=== PATIENT | male | born 1950 | race Caucasian/White ===

== ENCOUNTER 2020-09-27 07:33 | Day surgery (SDC) | payer MEDICARE, BC ==
[~2020-09-27 07:33] MED LIST: Midazolam 1 MG/ML 2 ML SDV ONE; Propofol 200 MG/20 ML SDV ONE; fentaNYL 100 MCG/2 ML SDV ONE
[2020-09-27] MEDS ORDERED: Dextrose 5%-Lactated Ringers 1,000 ML IV SCH (07:45)
--- NOTE | 2020-10-12 20:29 | OR ---
DATE OF PROCEDURE: 09/27/2020 SURGEON: Jules Guzman MD PREOPERATIVE DIAGNOSIS: History of rectal bleeding. POSTOPERATIVE DIAGNOSIS: 1. History of rectal bleeding secondary to diffusely excoriated hemorrhoids. 2. Single 1 cm polyp, mid sigmoid colon. OPERATIVE PROCEDURE: Flexible colonoscopy with polypectomy by snare technique. ANESTHESIA: IV sedation. INDICATION FOR PROCEDURE: A 70-year-old male presenting with some rectal bleeding who is undergoing colonoscopy with biopsies and polypectomy if indicated. Potential risks including bleeding and perforation were discussed, and the patient wishes to proceed. DETAILS OF PROCEDURE: The patient was taken to the operating room and placed in a left lateral decubitus position. IV sedation was administered, after which the initial digital rectal exam was performed. It was unremarkable. Colonoscope was then passed into the rectum with retroflexion revealing more or less diffusely excoriated hemorrhoidal columns. These would not be amenable to hemorrhoid banding per se due to the mixed level of the extent of excoriation. No blood or bleeding was seen on today's exam. Scope was eventually passed to the level of the cecum. The prep was fairly good with only small liquid stool present. There were no diverticula. No areas of colitis. There was a single polyp located at 25 cm from the dentate line, i.e., in the mid sigmoid colon. This was removed by means of polyp snare technique and sent for histologic evaluation. Good hemostasis was confirmed, scope was withdrawn, and the procedure was then concluded. At this point, the patient will be instructed to avoid constipation which seems to be problem at this point and then use Preparation H and/or hydrocortisone cream p.r.n. for hemorrhoid bleeding. Follow up with Vaughn Cespedes in 2 weeks regarding his abdominal pain per se, and his next colonoscopy should be in 3 years based on the polypectomy done today. Jules Guzman MD /[id number]
== END 2020-09-27 10:42 | disposition home or self-care (01) ==
LOC: JP.SDS 07:33
PROVIDERS: ATTEND Surgery
DX: D12.5 Benign neoplasm of sigmoid colon (principal); K64.9 Unspecified hemorrhoids
CPT/HCPCS: 45385; 88305; J2250; J2704; J3010; J7121

== ENCOUNTER 2021-04-11 07:58 | Day surgery (SDC) | payer MEDICARE, BC ==
[~2021-04-11 07:58] MED LIST changes: +Bupivacaine 0.5% 50 ML MDV ONE; +Dextrose 5%-Lactated Ringers 1,000 ML IV SCH; +Lidocaine 1% with EPINEPHrine 1:100,000 50 ML MDV ONE; +ceFAZolin 2 GM in Premix Bag 1 BAG IV ONE
[2021-04-11] MEDS ORDERED: ceFAZolin 2 GM in Premix Bag 1 BAG IV ONE (08:45)
[2021-04-11] MEDS ORDERED: Dextrose 5%-Lactated Ringers 1,000 ML IV SCH (08:45)
[2021-04-11] MEDS ORDERED: Pantoprazole 40 MG Vial IVPUSH ONE (11:41)
--- NOTE | 2021-04-19 13:37 | OR ---
DATE OF PROCEDURE: 04/11/2021 SURGEON: Jules Guzman MD PREOPERATIVE DIAGNOSIS: Epigastric pain and heartburn. POSTOPERATIVE DIAGNOSES: 1. Moderate-sized hiatal hernia with ulcerated esophagitis and grade 1 to 2 esophageal varices. 2. Mild antral gastritis and duodenitis. PROCEDURE PERFORMED: Esophagogastroduodenoscopy with antral biopsies for CLOtest. ANESTHESIA: IV sedation. INDICATION FOR PROCEDURE: This is a 70-year-old male presenting with some ongoing heartburn and epigastric discomfort. He has, in the past, been intermittently on some acid blocking- type medications, but not presently on any. Plan is to proceed with upper endoscopy with biopsies as indicated. Potential risks including bleeding and perforation were discussed, and the patient wishes to proceed. DETAILS OF PROCEDURE: The patient was taken to the operating room and placed in a left lateral decubitus position. IV sedation was administered after which the upper GI endoscope was passed orally through the length of the esophagus into the stomach with retroflexion view of the fundus, and thereafter, through the pyloric channel into the proximal duodenum. Findings included normal hypopharynx, larynx, upper esophageal sphincter, and esophageal body. In the mid esophagus and downward, the patient did have some visible esophageal varices. These were relatively low grade. This was associated with a roughly 4 to 5 cm hiatal hernia. There was significant ulceration in the distal esophagus as well as extending several centimeters above that. One of the ulcers was directly over one of the varices, but appeared to be fairly superficial. Apart from that, there was no plaquing or growth suggestive of neoplastic change, and no stricturing noted. Within the stomach, there was some patchy redness in the antrum and duodenal bulb. Beyond that, duodenal findings were unremarkable. Proximally, there were some mild gastric varices as well. At this point, biopsies were obtained from the antrum and sent for CLOtest for H pylori. Minimal bleeding from the biopsy site was seen. We deferred biopsying the areas for ulceration so as to avoid potential bleeding from varices, and the procedure was then concluded. The patient will be started on Protonix 40 mg IV push in the recovery room and then begin on Protonix 40 mg daily. The patient should likely remain on some acid-blockade medication indefinitely so as to avoid risk of developing bleeding from the varices. The other issue in this patient is the patient has nasal presentation and would like some of this to be excised. We will set him up for consultation with Dr. Yao Joseph of the ENT Department in [place]. Otherwise, the patient will be following up with Vaughn Cespedes CNP, at [facility] in 2 weeks. Jules Guzman MD /[id number]
== END 2021-04-11 12:39 | disposition home or self-care (01) ==
LOC: JP.SDS 07:58
PROVIDERS: ATTEND Surgery
DX: K22.10 Ulcer of esophagus without bleeding (principal); K29.90 Gastroduodenitis, unspecified, without bleeding; I85.00 Esophageal varices without bleeding; K44.9 Diaphragmatic hernia without obstruction or gangrene; K21.9 Gastro-esophageal reflux disease without esophagitis
CPT/HCPCS: 43239; 87081; C9113; J2250; J2704; J3010; J7121; J3490

== ENCOUNTER 2021-06-06 19:19 | Emergency (ER) | payer MEDICARE, BC ==
[2021-06-06] MEDS ORDERED: Ketorolac 30 MG/ML SDV IM ONE (20:43)
[2021-06-06] MEDS ORDERED: Tamsulosin 0.4 MG Cap.ER PO ONE (21:21)
--- NOTE | 2021-06-06 21:23 | EDM.PDOC ---
ED HPI GENERAL MEDICAL PROBLEM - General Chief Complaint: Back Pain or Injury Stated Complaint: BACK PAIN Time Seen by Provider: 06/06/21 20:25 Source of Information: Reports: Patient History Limitations: Reports: No Limitations - History of Present Illness INITIAL COMMENTS - FREE TEXT/NARRATIVE: 71-year-old male developed right abdominal and right flank pain 6 hours ago, took some ibuprofen and that seemed to improve. It came back later however he had a hard time getting comfortable and the pain got so severe that he was rolling around on the floor. Nauseous but no vomiting, he also has some urgency for urination. No fevers or chills, no recent trauma. Onset: Sudden (Fairly sudden onset 6 hours ago) Duration: Other (Right flank and right upper abdomen) Improves with: Reports: Other (Seems to be better when sitting up, ibuprofen was also helpful) Worsens with: Reports: None Associated Symptoms: Reports: Other (Nausea but no vomiting) right lower back Pain Score (Numeric/FACES): 3 - Related Data Allergies Allergy/AdvReac Type Severity Reaction Status Date / Time No Known Allergies Allergy Verified 06/06/21 20:30 Home Meds: Home Meds Pantoprazole Sodium [Protonix] 40 mg PO DAILY 06/06/21 [History] Past Medical History HEENT History: Reports: Cataract, Impaired Vision, Other (See Below) 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 Gastrointestinal History: Reports: Colon Polyp, GERD, GI Bleed, Hemorrhoids Other Gastrointestinal History: ulcers Genitourinary History: Reports: None Musculoskeletal History: Reports: Arthritis, Back Pain, Chronic, Neck Pain, Chronic Neurological History: Reports: Concussion, Headaches, Chronic, Vertigo Endocrine/Metabolic History: Reports: Other (See Below) Other Endocrine/Metabolic History: hypoglycemic Dermatologic History: Reports: Urticaria - Infectious Disease History Infectious Disease History: Reports: Chicken Pox, Measles, Mumps, Rubella - Past Surgical History HEENT Surgical History: Reports: None GI Surgical History: Reports: Colonoscopy, Polypectomy Male Surgical History: Reports: Vasectomy Endocrine Surgical History: Reports: None Neurological Surgical History: Reports: None Musculoskeletal Surgical History: Reports: None Dermatological Surgical History: Reports: None Social & Family History - Family History Family Medical History: No Pertinent Family History - Tobacco Use Tobacco Use Status *Q: Never Tobacco User - Caffeine Use Caffeine Use: Reports: None - Recreational Drug Use Recreational Drug Use: No ED ROS GENERAL - Review of Systems Review Of Systems: See Below Constitutional: Denies: Fever, Chills HEENT: Reports: No Symptoms Respiratory: Denies: Shortness of Breath, Cough Cardiovascular: Denies: Chest Pain, Palpitations GI/Abdominal: Reports: Abdominal Pain, Nausea. Denies: Constipation, Diarrhea, Vomiting : Reports: Flank Pain, Urgency Musculoskeletal: Reports: Back Pain Skin: Reports: No Symptoms Neurological: Reports: No Symptoms Psychiatric: Reports: No Symptoms ED EXAM, GENERAL - Physical Exam Exam: See Below Exam Limited By: No Limitations General Appearance: Alert, Anxious, Moderate Distress (Very uncomfortable when I first examined the patient, difficulty sitting still) Head: Atraumatic Respiratory/Chest: Lungs Clear Cardiovascular: Regular Rate, Rhythm. No: Tachycardia GI/Abdominal: Soft, Non-Tender Back Exam: Other (No palpation tenderness). No: CVA Tenderness (R), CVA Tenderness (L) Extremities: Normal Inspection. No: Pedal Edema Neurological: Alert, Oriented Psychiatric: Anxious Course - Vital Signs Last Recorded V/S: Last Vital Signs Temp 97.1 F 06/06/21 20:31 Pulse 76 06/06/21 20:31 Resp 16 06/06/21 20:31 BP 143/79 H 06/06/21 20:31 Pulse Ox 97 06/06/21 20:31 - Orders/Labs/Meds Labs: Laboratory Tests 06/06/21 Range/Units 20:43 Urine Color Yellow (YELLOW) Urine Appearance Slightly cloudy A (CLEAR) Urine pH 5.5 (5.0-8.0) Ur Specific [place] >= 1.030 (1.008-1.030) Urine Protein 30 H (NEGATIVE) mg/dL Urine Glucose (UA) Negative (NEGATIVE) mg/dL Urine Ketones Negative (NEGATIVE) mg/dL Urine Occult Blood Moderate H (NEGATIVE) Urine Nitrite Negative (NEGATIVE) Urine Bilirubin Negative (NEGATIVE) Urine Urobilinogen 0.2 (0.2-1.0) EU/dL Ur Leukocyte Esterase Negative (NEGATIVE) Urine RBC 40-50 H (0-5) Urine WBC 0-5 (0-5) Ur Epithelial Cells Rare Amorphous Sediment Not seen Urine Bacteria Rare Urine Mucus Few Meds: Medications Discontinued Medications Generic Name Dose Route Start Last Admin Trade Name Freq PRN Reason Stop Dose Admin Ketorolac Tromethamine 30 mg 06/06/21 20:43 06/06/21 20:53 Ketorolac 30 Mg/Ml Sdv IM 06/06/21 20:44 30 mg ONETIME ONE Administration Tamsulosin HCl 0.4 mg 06/06/21 21:21 06/06/21 21:28 Tamsulosin 0.4 Mg Cap.Er PO 06/06/21 21:22 0.4 mg ONETIME ONE Administration - Re-Assessments/Exams Free Text/Narrative Re-Assessment/Exam: 06/06/21 21:26 Patient was given 30 mg of IM Toradol, a UA was obtained and he was sent back for CT of the abdomen and pelvis without contrast. He had marked relief of the pain with the IM Toradol, the CT did confirm a small ureteral stone about midway down the right ureter. He was given 1 oral dose of Flomax, and discharged with 10 additional doses of Toradol to take every 6 hours along with 10 hydrocodone for extra pain control. If pain is not resolved in the next 1 to 2 days he can return for recheck. 06/06/21 21:27 UA showed 40-50 RBCs, no evidence of infection Departure - Departure Time of Disposition: 21:40 Disposition: Home, Self-Care 01 Clinical Impression: Renal colic on right side, Right nephrolithiasis - Discharge Information Instructions: Kidney Stones, [id number] Referrals: Vaughn Cespedes [facility]ICE [facility]NER [Primary Care Provider] - Forms: ED Department Discharge Care Plan Goals: Stay hydrated, take 1 ketorolac pill every 6 hours to keep pain under control and add Vicodin as directed if needed for extra pain control. It is safe to take both. Consider rechecking in 24 to 48 hours if not significant improvement. Sepsis Event Note (ED) - Evaluation Sepsis Screening Result: No Definite Risk - Focused Exam Vital Signs: Vital Signs Temp Pulse Resp BP Pulse Ox 06/06/21 20:31 97.1 F 76 16 143/79 H 97 06/06/21 19:35 97.1 F 76 16 143/79 H 97
--- NOTE | 2021-06-06 21:28 | CRLCT ---
For Patients: As a result of the Century Cures Act, medical imaging exams and procedure reports are released immediately into your electronic medical record. You may view this report before your referring provider. If you have questions, please contact your health care provider. INDICATION: Right flank pain. COMPARISON: None available. TECHNIQUE: Routine noncontrast axial CT images of the abdomen and pelvis. Sagittal and coronal reformatted series were also generated and reviewed. FINDINGS: The lower chest is unremarkable. - Low-attenuation lesion in the left lobe of the liver, compatible with a benign cyst. No biliary ductal dilatation. The gallbladder, pancreas, spleen and adrenal glands have an unremarkable noncontrast appearance. A partially exophytic benign right renal cyst. 3 mm right proximal ureteral stone results in mild right-sided hydronephrosis. No left-sided hydronephrosis. - Normal caliber aorta. No aneurysm. No suspicious abdominal or pelvic lymphadenopathy. - No bowel obstruction or ascites. The appendix is normal. Few scattered colonic diverticula. No focal inflammatory change, perforation or abscess. - Urinary bladder is decompressed. Moderately enlarged prostate. Seminal vesicles are unremarkable. No free fluid in the pelvis. - There are no acute or aggressive osseous findings. IMPRESSION: 1. 3 mm right proximal ureteral stone resulting in mild right-sided hydronephrosis. 2. Other findings, as above. Dictated by Delfino Colorado MD @ 06/06/2021 9:28:01 PM Please note that all CT scans at this facility use dose modulation, iterative reconstruction, and/or weight-based dosing when appropriate to reduce radiation dose to as low as reasonably achievable. Dictated by: Delfino Colorado MD @ 06/06/2021 21:28:11 (Electronically Signed)
== END 2021-06-06 21:47 | disposition home or self-care (01) ==
LOC: JP.ED 19:19
DX: N13.2 Hydronephrosis with renal and ureteral calculous obstruction (principal); K21.9 Gastro-esophageal reflux disease without esophagitis; Z79.899 Other long term (current) drug therapy
CPT/HCPCS: 74176; 81001; 96372; 99284; A9270; J1885

== ENCOUNTER 2021-12-12 06:45 | Day surgery (SDC) | payer MEDICARE, BC ==
[2021-12-12] MEDS ORDERED: Lidocaine 1% with EPINEPHrine 1:100,000 50 ML MDV ONE (07:13)
[2021-12-12] MEDS ORDERED: Bupivacaine 0.5% 50 ML MDV ONE (07:13)
[2021-12-12] MEDS ORDERED: Propofol 200 MG/20 ML SDV ONE (07:24)
[2021-12-12] MEDS ORDERED: Midazolam 1 MG/ML 2 ML SDV ONE (07:25)
[2021-12-12] MEDS ORDERED: fentaNYL 100 MCG/2 ML SDV ONE (07:25)
[2021-12-12] MEDS ORDERED: Dextrose 5%-Lactated Ringers 1,000 ML IV SCH (07:30)
[2021-12-12] MEDS ORDERED: Glycopyrrolate 0.2 MG/ML 2 ML SDV IVPUSH ONE (08:00)
== END 2021-12-12 10:15 | disposition home or self-care (01) ==
LOC: JP.SDS 06:45
PROVIDERS: ATTEND Surgery
DX: I85.00 Esophageal varices without bleeding (principal); K44.9 Diaphragmatic hernia without obstruction or gangrene; K29.60 Other gastritis without bleeding; K21.9 Gastro-esophageal reflux disease without esophagitis
CPT/HCPCS: 87081; J2250; J2704; J3010; J3490; J7121

== ENCOUNTER 2023-05-29 10:37 | Emergency (ER) | payer BC, MEDICARE ==
[2023-05-29] MEDS ORDERED: Ketorolac 15 MG/ML SDV IVPUSH ONE (12:26)
[2023-05-29 12:31] LABS: BASOPHILS ABSOLUTE AUTO 0.05 K/uL (0.00-0.10); BASOPHILS PERCENT AUTO 0.8 % (0.1-1.3); EOSINOPHILS ABSOLUTE AUTO 0.25 K/uL (0.00-0.40); EOSINOPHILS PERCENT AUTO 4.1 % (0.0-5.4); HEMATOCRIT 41.1 % (38.4-49.7); IMMATURE GRAN PERCENT AUTO 0.3 % (0.0-0.7); LYMPHOCYTES ABSOLUTE AUTO 0.87 K/uL (0.8-3.3); LYMPHOCYTES PERCENT AUTO 14.3 % (11.4-47.7); MEAN CORPUSCULAR HEMOGLOBIN 32.4 pg (31.6-35.5); MEAN CORPUSCULAR HGB CONC 34.1 g/dL (31.6-35.5); MEAN CORPUSCULAR VOLUME 95.1 fL (81.4-99.0); MONOCYTES ABSOLUTE AUTO 0.68 K/uL (0.20-0.90); MONOCYTES PERCENT AUTO 11.2 % (3.3-12.6); NEUTROPHILS ABSOLUTE AUTO 4.22 K/uL (1.0-7.6); NEUTROPHILS PERCENT AUTO 69.3 % (40.0-78.1); PLATELET COUNT,PLT 196 K/uL (130-375); RED BLOOD CELL COUNT 4.32 M/uL (4.14-5.76); WHITE BLOOD CELL COUNT,WBC 6.1 K/uL (3.2-11.0)
[2023-05-29 12:32] LABS: IMMATURE GRAN ABSOLUTE AUTO 0.02 K/uL (0.00-0.23)
[2023-05-29 12:59] LABS: ALANINE AMINOTRANSFERASE,ALT 34 U/L (12-78); ALBUMIN 3.7 g/dL (3.4-5.0); ALKALINE PHOSPHATASE 73 U/L (46-116); ANION GAP 9.9 mmol/L (5.0-14.0); ASPARTATE AMNIOTRANSFERASE,AST 28 U/L (15-37); BILIRUBIN TOTAL 0.7 mg/dL (0.2-1.0); BLOOD UREA NITROGEN,BUN 20 mg/dL (7-18); CARBON DIOXIDE,CO2 26 mmol/L (21-32); CHLORIDE,CL 104 mmol/L (100-108); CREATININE 1.6 mg/dL (0.8-1.3); EST CRCL DRUG DOSING (CG) 43.72 mL/min; ESTIMATED GFR 46 mL/min (>60); GLUCOSE RANDOM 98 mg/dL (74-106); PROTEIN TOTAL,TP 7.5 g/dL (6.4-8.2); SODIUM,NA 140 mmol/L (140-148)
[2023-05-29 13:01] LABS: APPEARANCE,URINE CLOUDY (CLEAR); BILIRUBIN,URINE NEGATIVE (NEGATIVE); COLOR,URINE YELLOW (YELLOW); GLUCOSE,URINE NEGATIVE (NEGATIVE); KETONES,URINE NEGATIVE (NEGATIVE); LEUKOCYTE ESTERASE,URINE NEGATIVE (NEGATIVE); NITRITE,URINE NEGATIVE (NEGATIVE); OCCULT BLOOD,URINE LARGE (NEGATIVE); PROTEIN,URINE 30 mg/dL (NEGATIVE); UROBILINOGEN,URINE 0.2 EU/dL (0.2-1.0)
[2023-05-29 13:07] LABS: AMORPHOUS SEDIMENT,URINE NOT SEEN; BACTERIA,URINE NOT SEEN; EPITHELIAL CELLS,URINE NOT SEEN; MUCUS,URINE NOT SEEN; RBC,URINE >100 (0-5); WBC,URINE 0-5 (0-5)
[2023-05-29] MEDS ORDERED: Tamsulosin 0.4 MG Cap.ER PO ONE (13:43)
== END 2023-05-29 15:03 | disposition home or self-care (01) ==
LOC: JP.ED 10:37
DX: N13.2 Hydronephrosis with renal and ureteral calculous obstruction (principal)
CPT/HCPCS: 36415; 74176; 80053; 81001; 83690; 85025; 96374; 99284; A9270; J1885

== ENCOUNTER 2023-06-06 09:08 | Emergency (ER) | payer MEDICARE ==
[2023-06-06 10:08] LABS: APPEARANCE,URINE CLOUDY (CLEAR); BILIRUBIN,URINE NEGATIVE (NEGATIVE); COLOR,URINE YELLOW (YELLOW); GLUCOSE,URINE NEGATIVE (NEGATIVE); KETONES,URINE NEGATIVE (NEGATIVE); LEUKOCYTE ESTERASE,URINE NEGATIVE (NEGATIVE); NITRITE,URINE NEGATIVE (NEGATIVE); OCCULT BLOOD,URINE LARGE (NEGATIVE); PH,URINE 6.5 (5.0-8.0); PROTEIN,URINE NEGATIVE (NEGATIVE); UROBILINOGEN,URINE 0.2 EU/dL (0.2-1.0)
[2023-06-06 10:20] LABS: AMORPHOUS SEDIMENT,URINE NOT SEEN; BACTERIA,URINE NOT SEEN; EPITHELIAL CELLS,URINE FEW; MUCUS,URINE FEW; RBC,URINE 50-75 (0-5); WBC,URINE 0-5 (0-5)
[2023-06-06 10:21] LABS: BASOPHILS ABSOLUTE AUTO 0.05 K/uL (0.00-0.10); BASOPHILS PERCENT AUTO 0.8 % (0.1-1.3); EOSINOPHILS ABSOLUTE AUTO 0.31 K/uL (0.00-0.40); EOSINOPHILS PERCENT AUTO 4.9 % (0.0-5.4); HEMATOCRIT 39.8 % (38.4-49.7); HEMOGLOBIN 13.6 g/dL (12.9-16.9); IMMATURE GRAN ABSOLUTE AUTO 0.03 K/uL (0.00-0.23); IMMATURE GRAN PERCENT AUTO 0.5 % (0.0-0.7); LYMPHOCYTES ABSOLUTE AUTO 0.69 K/uL (0.8-3.3); LYMPHOCYTES PERCENT AUTO 10.8 % (11.4-47.7); MEAN CORPUSCULAR HEMOGLOBIN 32.8 pg (31.6-35.5); MEAN CORPUSCULAR HGB CONC 34.2 g/dL (31.6-35.5); MEAN CORPUSCULAR VOLUME 95.9 fL (81.4-99.0); MONOCYTES ABSOLUTE AUTO 0.76 K/uL (0.20-0.90); MONOCYTES PERCENT AUTO 11.9 % (3.3-12.6); NEUTROPHILS ABSOLUTE AUTO 4.54 K/uL (1.0-7.6); NEUTROPHILS PERCENT AUTO 71.1 % (40.0-78.1); PLATELET COUNT,PLT 197 K/uL (130-375); RED BLOOD CELL COUNT 4.15 M/uL (4.14-5.76); WHITE BLOOD CELL COUNT,WBC 6.4 K/uL (3.2-11.0)
[2023-06-06 10:36] LABS: CREATININE 1.3 mg/dL (0.8-1.3); EST CRCL DRUG DOSING (CG) 53.81 mL/min
== END 2023-06-06 12:36 | disposition home or self-care (01) ==
LOC: JP.ED 09:08
DX: N13.2 Hydronephrosis with renal and ureteral calculous obstruction (principal); Z85.46 Personal history of malignant neoplasm of prostate; Z79.899 Other long term (current) drug therapy
CPT/HCPCS: 36415; 76770; 76770-26; 80048; 81001; 85025; 99284